=== PATIENT | female | born 1965 | race Caucasian/White ===

== ENCOUNTER 2016-10-10 16:42 | Outpatient (CLI) | payer BC | END 2016-10-10 16:44 | LOC: LABRHC 16:42 | PROVIDERS: ATTEND Physician Assistant | DX: N30.01 Acute cystitis with hematuria (principal) | CPT/HCPCS: 87086 ==

== ENCOUNTER 2017-07-12 10:38 | Outpatient (CLI) | payer BC ==
[2017-07-12 10:55] LABS: EOSINOPHILS % 1.7 % (0.0-6.8); MEAN CORPUSCULAR HEMOGLOBIN 29.8 pg (28.0-34.0); MEAN CORPUSCULAR VOLUME 94.9 fl (80.0-100.0); MONOCYTES % 5.9 % (0.0-11.0); NEUTROPHILS # 3.4 # k/uL (1.4-7.7)
[2017-07-12 11:18] LABS: eGFR (African) > 60; eGFR (Non-African) > 60
== END 2017-07-12 10:40 ==
LOC: LAB 10:38
PROVIDERS: ATTEND Physician Assistant
DX: R10.30 Lower abdominal pain, unspecified (principal)
CPT/HCPCS: 36415; 80053; 85025; 87086

== ENCOUNTER 2019-03-18 14:31 | Outpatient (CLI) | payer BC | END 2019-03-18 14:36 | LOC: LABRHC 14:31 | PROVIDERS: ATTEND Family Medicine | DX: R30.0 Dysuria (principal) | CPT/HCPCS: 87086 ==